=== PATIENT | female | born 1985 | race Caucasian/White ===

== ENCOUNTER 2020-09-02 02:25 | Inpatient (IN) | payer OTHER ==
[2020-09-02] MEDS ORDERED: ELECTROLYTE-148 SOLN 500 ML IV ONE ×2 (02:30→08:18)
[2020-09-02] MEDS ORDERED: CITRIC ACID/SODIUM CITRATE 30 ML UNIT-DOSE CUP PO ONE ×2 (02:30→08:18)
[2020-09-02] MEDS ORDERED: ELECTROLYTE-148 SOLN 1,000 ML IV SCH ×2 (03:00→08:30)
[2020-09-02] MEDS ORDERED: AMPICILLIN - 2 GM in SODIUM CHLORIDE 100 ML IVPB ONE (03:00)
[2020-09-02] MEDS ORDERED: AMPICILLIN SODIUM 2 GM VIAL ONE (03:38)
[2020-09-02 04:07] VITALS: BMI 41.0
[2020-09-02 04:22] LABS: BASO % 0.3 % (0-2.0); HEMATOCRIT 34.7 % (32.4-45.2); HEMOGLOBIN 11.2 GM/dL (10.7-15.3); LYMPH % 23.4 % (8-40); MCH 27.7 pg (25.7-33.7); MCHC 32.2 g/dl (32.0-36.0); MEAN CELL VOLUME 86.1 fl (80-96); MEAN PLT VOLUME 9.7 fl (7.5-11.1); MONO % 6.5 % (3.8-10.2); NEUT % 67.8 % (42.8-82.8); PLATELET COUNT 249 K/MM3 (134-434); RBC 4.04 M/mm3 (3.60-5.2); RDW 15.9 % (11.6-15.6); WHITE BLOOD COUNT 11.4 K/mm3 (4.0-10.0)
[2020-09-02 04:40] LABS: CALCIUM 8.6 mg/dL (8.5-10.1); INR 0.91 (0.83-1.09); PROTHROMBIN TIME (PATIENT) 11.2 SEC (9.7-13.0)
[2020-09-02 04:41] LABS: ALBUMIN 2.2 g/dl (3.4-5.0); BLOOD UREA NITROGEN 15.4 mg/dL (7-18)
[2020-09-02 04:43] LABS: BILIRUBIN,DIRECT 0.1 mg/dL (0.0-0.2)
[2020-09-02 04:44] LABS: CREATININE 0.7 mg/dL (0.55-1.3)
[2020-09-02 04:45] LABS: BILIRUBIN,TOTAL 0.2 mg/dL (0.2-1); TOT PROT 5.9 g/dl (6.4-8.2)
[2020-09-02] MEDS ORDERED: AMPICILLIN SODIUM 1 GM VIAL ONE (06:11)
[2020-09-02] MEDS: AMPICILLIN - 1 GM in SODIUM CHLORIDE 100 ML IVPB SCH ×3 (06:45→19:31)
[2020-09-02] MEDS ORDERED: OXYTOCIN 20 UNITS in 0.9% NS 20 UNIT/1,000 ML INFUS.BAG IV ONE (08:31)
[2020-09-02] MEDS ORDERED: morphine SULFATE/PF 0.5 MG/ML (2cc Syringe - QUVA) ONE (08:35)
[2020-09-02] MEDS ORDERED: OXYTOCIN 10 UNITS/ML VIAL ONE (09:29)
[2020-09-02] MEDS ORDERED: DEXAMETHASONE SOD PHOSPHATE 4 MG/1 ML VIAL ONE (09:29)
[2020-09-02] MEDS ORDERED: ONDANSETRON 4 MG/2 ML VIAL ONE (09:29)
[2020-09-02] MEDS ORDERED: ceFAZolin SODIUM 1 GM VIAL ONE (09:29)
[2020-09-02] MEDS ORDERED: PHENYLEPHRINE HCL 10 MG/1 ML SINGLE DOSE VIAL ONE (09:29)
[2020-09-02] MEDS ORDERED: GLYCOPYRROLATE 0.2 MG/1 ML VIAL ONE (09:30)
[2020-09-02] MEDS ORDERED: ONDANSETRON 4 MG/2 ML VIAL IVPUSH PRN (10:07)
[2020-09-02] MEDS ORDERED: oxyCODONE HCL 5 MG TABLET PO PRN (10:29)
[2020-09-02] MEDS ORDERED: IBUPROFEN 800 MG/8 ML IJ IVPB PRN (10:29)
[2020-09-02] MEDS ORDERED: METHYLERGONOVINE MALEATE 0.2 MG/1 ML AMP IM PRN (10:29)
[2020-09-02] MEDS ORDERED: OXYTOCIN 20 UNITS in 0.9% NS 20 UNIT/1,000 ML INFUS.BAG IV SCH (10:30)
[2020-09-02] MEDS ORDERED: IBUPROFEN 800 MG/8 ML IJ IVPB ONE (11:14)
[2020-09-02 13:16] LABS: HIV INTERPRETATION NEGATIVE (NEGATIVE)
[2020-09-02] MEDS: ACETAMINOPHEN 325 MG TABLET (FP) PO PRN (20:57)
[2020-09-02] MEDS: IBUPROFEN 600 MG TABLET (FP) PO PRN (20:58)
[2020-09-02] MEDS: SIMETHICONE 80 MG TAB.CHEW (FP) PO PRN (20:58)
[2020-09-02] MEDS ORDERED: SENNOSIDES/DOCUSATE COMBO (SENNA PLUS) TABLET (UD) PO PRN (22:00)
[2020-09-03] MEDS: ACETAMINOPHEN 325 MG TABLET (FP) PO PRN ×3 (06:42→20:03)
[2020-09-03] MEDS: SIMETHICONE 80 MG TAB.CHEW (FP) PO PRN ×3 (06:42→20:06)
[2020-09-03] MEDS: IBUPROFEN 600 MG TABLET (FP) PO PRN ×3 (06:43→20:05)
[2020-09-03 08:13] LABS: BASO % 0.4 % (0-2.0); EOS % 0.8 % (0-4.5); HEMOGLOBIN 10.4 GM/dL (10.7-15.3); LYMPH % 28.3 % (8-40); MCH 28.5 pg (25.7-33.7); MCHC 33.6 g/dl (32.0-36.0); MEAN CELL VOLUME 84.8 fl (80-96); MEAN PLT VOLUME 8.8 fl (7.5-11.1); MONO % 5.8 % (3.8-10.2); NEUT % 64.7 % (42.8-82.8); PLATELET COUNT 261 K/MM3 (134-434); RBC 3.66 M/mm3 (3.60-5.2); WHITE BLOOD COUNT 13.5 K/mm3 (4.0-10.0)
[2020-09-03 08:45] LABS: POC NITRAZINE POS
[2020-09-03] MEDS: PRENATAL VITAMINS W/ FOLIC ACID TABLET (FP) PO SCH (10:09)
[2020-09-03] MEDS ORDERED: BISACODYL 10 MG SUPP.RECT RC PRN (10:29)
[2020-09-03] MEDS: oxyCODONE HCL 5 MG TABLET PO PRN (20:04)
[2020-09-04] MEDS: ACETAMINOPHEN 325 MG TABLET (FP) PO PRN (06:16)
[2020-09-04] MEDS: IBUPROFEN 600 MG TABLET (FP) PO PRN (06:16)
[2020-09-04] MEDS: oxyCODONE HCL 5 MG TABLET PO PRN (06:17)
[2020-09-04] MEDS: SIMETHICONE 80 MG TAB.CHEW (FP) PO PRN (06:18)
[2020-09-04] MEDS: PRENATAL VITAMINS W/ FOLIC ACID TABLET (FP) PO SCH (09:40)
[2020-09-04 10:04] VITALS: BP 120/75; PULSE 72; TEMP 98
== END 2020-09-04 11:30 | disposition home or self-care (01) | DRG 540 ==
LOC: JLDR 02:25 → J3W 11:40
PROVIDERS: ADMIT Obstetrics & Gynecology; ATTEND Obstetrics & Gynecology
PROC: 10D00Z1 Extraction of Products of Conception, Low, Open Approach (ICD-10-PCS; principal; 2020-09-02)
DX: O44.43 Low lying placenta NOS or without hemorrhage, third trimester (principal); O26.62 Liver and biliary tract disorders in childbirth; K83.1 Obstruction of bile duct; O24.420 Gestational diabetes mellitus in childbirth, diet controlled; O42.02 Full-term premature rupture of membranes, onset of labor within 24 hours of rupture; O69.81X0 Labor and delivery complicated by cord around neck, without compression, not applicable or unspecified; O36.63X0 Maternal care for excessive fetal growth, third trimester, not applicable or unspecified; Z3A.38 38 weeks gestation of pregnancy; Z37.0 Single live birth; O99.52 Diseases of the respiratory system complicating childbirth; J45.909 Unspecified asthma, uncomplicated
CPT/HCPCS: 36415; 80053; 80076; 83986-QW; 85025; 85610; 85730; 86780; 86850; 86900; 86901; 87389; 88307-TC; C9803; U0003; U0005